=== PATIENT | male | born 1940 | race Caucasian/White ===

== ENCOUNTER 2017-08-21 11:03 | Inpatient (IN) | payer MEDICARE, MEDICAID ==
--- NOTE | 2017-08-21 11:49 | RAD ---
SINGLE VIEW CHEST: Date: 08/21/17 COMPARISON: 07/11/17. HISTORY: Altered mental status. FINDINGS: Single view of the chest shows a normal sized cardiomediastinal silhouette. There is no evidence of c onsolidation, mass, or pleural effusion. The bones are unremarkable. IMPRESSION: No evidence of acute cardiopulmonary disease. POS: [facility]
[2017-08-21] MEDS ORDERED: ISOVUE-370 76%-LOCM 1 ML ONE (12:19)
--- NOTE | 2017-08-21 13:04 | CT ---
NONCONTRAST HEAD CT: Date: 08/21/17 HISTORY: Altered mental status. Weakness. COMPARISON: 04/15/09. TECHNIQUE: Noncontrast head CT is performed from skull base to skull vertex. FINDINGS: No parenchymal hemorrhage or extra-axial hematoma. No midline shift. Basilar cisterns are patent. Bra in volume is age-appropriate. Cortical long-white matter differentiation is preserved. Ventricles and sulci are patent and symmetric. Chronic small vessel ischemic changes of white matter are noted. Calvarium is intact. Adequate aeration of the sinuses and mastoid air cells. Old left nasal bone frac ture noted. IMPRESSION: No acute intracranial process. POS: [facility]
--- NOTE | 2017-08-21 13:12 | CT ---
ABDOMEN CT WITH CONTRAST: PELVIS CT WITH CONTRAST: HISTORY: Altered mental status. Weakness. Abdominal pain. COMPARISON: None. TECHNIQUE: An abdomen and pelvis CT was performed with IV contrast. Enteric contrast was not administered. Cor onal reformatted images were submitted for interpretation. FINDINGS: ABDOMEN: There are interstitial and alveolar infiltrates involving both lower lobes. No pleural eff usion or pneumothorax. Heart size is upper normal. No significant pericardial fluid. The descendin g thoracic aorta and abdominal aorta have an overall normal caliber. No periaortic fat stranding. No gastrohepatic, retrocrural, or periportal lymphadenopathy. The gallbladder is unremarkable. The intrahepatic and extrahepatic portal vein is patent. Symmetric attenuation of the psoas muscles. Hypoattenuation of the liver due to hepatic steatosis. The spleen, pancreas, and bilateral adrenal g lands have appropriate enhancement. Symmetric arterial phase enhancement of the kidneys. Bilaterally, no obstructive uropathy. No mesenteric mass, lymphadenopathy, free air, or free fluid. Limited evaluation of the alimentary canal due to lack of oral contrast. The gastric mucosa, duodenu m, and multiple normal caliber small bowel loops are noted. The ileocecal junction is normal. A nor mal caliber appendix emanates from the cecal apex. Scattered fecal material in a nondistended, nondi lated colon. Diverticula in the sigmoid colon, without evidence of diverticulitis. PELVIS: No mass, lymphadenopathy, free air, or free fluid. There is inadequate distention of the uri nary bladder. Mucosal prominence may be due to inadequate distention. There is some nonspecific per ivesicular fat stranding. The paucity of an infectious or inflammatory process cannot be completely excluded. No lytic or blastic lesions in the osseous structures. IMPRESSION: 1. Abnormal appearance of the urinary bladder. Correlate for infectious or inflammatory process. 2. Lung parenchymal changes, as defined above. POS: [facility]
[2017-08-21 13:58] LABS: ALT (SGPT) 8 U/L (8-55); AST (SGOT) 12 U/L (5-34); Albumin 3.9 g/dL (3.4-4.8); Alkaline Phosphatase 74 U/L (40-150); Anion Gap 17 mmol/L (10-20); BUN (Urea Nitrogen) 23 mg/dL (8.4-25.7); Bilirubin, Total 0.7 mg/dL (0.2-1.2); Calc. Creatinine Clearance 0 mL/min (70-130); Calcium 10.3 mg/dL (7.8-10.44); Carbon Dioxide 20 mmol/L (23-31); Chloride 105 mmol/L (98-107); Estimated GFR-MDRD 44; Globulin 3.2 g/dL (2.4-3.5); Glucose 94 mg/dL (83-110); Lipase 27 U/L (8-78); Potassium 5.5 mmol/L (3.5-5.1); Protein, Total 7.1 g/dL (5.8-8.1); Sodium 136 mmol/L (136-145)
[2017-08-21 14:13] LABS: Bilirubin Negative (Negative); Clarity Slightly Cloudy (Clear); Glucose, Urine (Dipstick) Negative (Negative)
[2017-08-21 14:14] LABS: Blood, Urine Small (Negative); Leukocyte Trace (Negative); Nitrite Negative (Negative); Protein, Urine (Dipstick) Trace mg/dL (Neg-Trace); Urobilinogen 0.2 mg/dL (0.2-1.0)
[2017-08-21 14:23] LABS: Specific Gravity, Urine 1.054 (1.002-1.036)
[2017-08-21 14:25] LABS: Bacteria/HPF None Seen HPF (None Seen)
[2017-08-21 14:26] LABS: Pathc Cast-AUWi Flag 4.74 (0-2.49)
[2017-08-21 14:34] LABS: Hyaline Casts/LPF 0-3 HYALINE CAST LPF (0-3 Hyaline); Other Casts/LPF None Seen LPF (0-3 Hyaline); Squamous Epithelial 0-3 HPF (0-3); Transitional Epithelial 0-3 HPF (0-3)
[2017-08-21 15:10] LABS: #Eosinphils 0.2 thou/uL (0.0-0.7); #Lymphocytes 1.3 thou/uL (1.20-3.40); #Monocytes 0.9 thou/uL (0.11-0.59); #Neutrophils 4.4 thou/uL (1.40-6.50); %Basophils 0.1 % (0.0-1.0); %Eosinophils 2.3 % (0.0-10.0); %Lymphocytes 19.2 % (21.0-51.0); %Monocytes 12.8 % (0.0-10.0); %Neutrophils 65.7 % (42.0-75.0); Hemoglobin 11.6 g/dL (14.0-18.0); Mean Corpuscular HGB CONC 33.1 g/dL (32.0-36.0); Mean Corpuscular Hemoglobin 30.8 pg (27.0-31.0); Mean Platelet Volume 8.7 fL (7.4-10.4); Platelet Count 140 thou/uL (130-400); Red Blood Cell (RBC) Count 3.76 mill/uL (4.70-6.10); White Blood Cell (WBC) Count 6.7 thou/uL (4.8-10.8)
[2017-08-21] MEDS ORDERED: Meropenem 1 GM in Sterile Water 20 ML SLOW IVP SCH (15:15)
[2017-08-21 17:04] LABS: Potassium 5.2 mmol/L (3.5-5.1)
[2017-08-21] MEDS ORDERED: Insulin Regular 300 UNITS/3 ML VIAL SC PRN ×2 (19:06)
[2017-08-21] MEDS ORDERED: Dextrose 5% in Water 1,000 ML IV PRN (19:06)
[2017-08-21] MEDS ORDERED: Ondansetron ODT 4 MG TAB PO PRN (19:06)
[2017-08-21] MEDS ORDERED: Ondansetron HCl/PF 4 MG/2 ML Vial IVP PRN (19:06)
[2017-08-21] MEDS ORDERED: Senokot 8.6 MG TAB PO PRN (19:06)
[2017-08-21] MEDS ORDERED: Calcium Carbonate 500 MG ChewTAB PO PRN (19:06)
[2017-08-21] MEDS ORDERED: Dextrose 50% Abboject 50 ML SYRINGE SLOW IVP PRN (19:06)
[2017-08-21] MEDS ORDERED: Acetaminophen 325 MG TAB PO PRN ×2 (19:06→19:23)
[2017-08-21] MEDS ORDERED: Meropenem 1 GM in Sodium Chloride 0.9% 100 ML IVPB SCH (19:15)
[2017-08-21] MEDS ORDERED: hydrALAZINE 20 MG/ML VIAL SLOW IVP PRN (19:25)
--- NOTE | 2017-08-21 19:39 | HP ---
DATE OF ADMISSION: 08/21/2017 PRIMARY CARE PHYSICIAN: Dr. Huntley SURROGATE DECISION MAKER: Patient's sister. CODE STATUS: DO NOT RESUSCITATE, confirmed with the sister. CHIEF COMPLAINT: Altered mentation. HISTORY OF PRESENT ILLNESS: Patient is a 77-year-old male with dementia, diabetes mellitus type 2 and pyelonephritis, last month presented to the emergency room by EMS from [facility] with altered mentation. The altered mental status has been ongoing for the last 24 hours in and out. He also felt generally weak. Due to dementia, not much information is available from the patient. Patient had some lower abdominal discomfort. The patient denied any chest pain, palpitations, any skin rash, nausea, vomiting , diarrhea or constipation. In the emergency room, his initial vital signs showed temperature 97.7 with respiration 20, pulse rate of 55 with a blood pressure of 91/56 with O2 saturation 97% on room air. His blood pressure by EMS was 77/51. His workup in the emergency room was consistent with abnormal appearance of the urinary bladder. CT brain was negative. His chest x-ray was negative for infiltrate. Due to recent resistant E. coli, he received 1 dose of meropenem with 2 liters of IV fluid in the emergency room. PAST MEDICAL HISTORY: 1. Recent pyelonephritis with E. coli resistant to Levaquin. 2. Benign prostatic hypertrophy. 3. Dementia. 4. Diabetes mellitus type 2. 5. Coronary artery disease. 6. Hyperlipidemia. 7. Anxiety, depression, bipolar disorder. 8. Hypothyroidism. 9. Hyperlipidemia. PAST SURGICAL HISTORY: Skin cancer removal from the face. CURRENT HOME MEDICATIONS: Accurate list of medications to be obtained from the jail. Family does not know all of his medications. SOCIAL HISTORY: Patient resides at [facility]. He is more or less wheelchair dependent. He requires assistance for feeding. ALLERGIES: The patient is allergic to PENICILLIN. FAMILY HISTORY: Cannot be obtained from the patient due to current cognitive status. REVIEW OF SYSTEMS: The following complete review of systems was negative, unless otherwise mentioned in the HPI or below: Constitutional: Weight loss or gain, ability to conduct usual activities. Skin : Rash, itching. Eyes: Double vision, pain. ENT/Mouth: Nose bleeding, neck stiffness, pain, tenderness. Cardiovascular: Palpitations, dyspnea on exertion , orthopnea. Respiratory: Shortness of breath, wheezing, cough, hemoptysis, fever or night sweats. Gastrointestinal: Poor appetite, abdominal pain, heartburn, nausea, vomiting, constipation, or diarrhea. Genitourinary: Urgency , frequency, dysuria, nocturia. Musculoskeletal: Pain, swelling. Neurologic/ Psychiatric: Anxiety, depression. Allergy/Immunologic: Skin rash, bleeding tendency. PHYSICAL EXAMINATION: VITAL SIGNS: As discussed above. GENERAL: A 77-year-old male in no apparent distress. Denies any pain at this time. HEENT: Atraumatic, normocephalic, sclerae anicteric. Moist mucous membranes. No oral lesion. NECK: Supple, no JVD, no neck stiffness. LUNGS: Essentially clear to auscultation bilaterally. No wheezing, rales or rhonchi. HEART: S1, S2 present. Regular rate and rhythm. Bradycardiac no heaves or pulsation. ABDOMEN: Soft, mild tenderness over the suprapubic region. No rebound, guarding, no costovertebral angle tenderness. EXTREMITIES: No edema or calf tenderness. NEUROLOGIC: The patient is spontaneously moving all 4 extremities and follows command to some extent. PSYCHIATRIC: The patient is alert and awake. Detailed psychiatric examination cannot be done due to dementia. SKIN: Warm and dry. LYMPH NODES: No palpable lymph nodes in the neck. PERIPHERAL VASCULAR: Radial pulses palpable bilaterally. MUSCULOSKELETAL: No joint swelling or tenderness. LABORATORY FINDINGS: Potassium was 5.5 with creatinine 1.54, bicarbonate was 20. CBC showed WBC 6.7 with hemoglobin 11.6. Chest x-ray by my review as discussed above. EKG by my review showed sinus bradycardia with nonspecific ST-T wave changes. CT scan of the brain was negative. CT scan of the abdomen and pelvis by my review with contrast as discussed above. IMPRESSION: 1. Toxic metabolic encephalopathy secondary to urinary tract infection/? Pneumonia ?Pneumococcal vs Aspiration 2. Acute kidney injury on chronic kidney disease stage II. 3. Hyperkalemia, probably secondary to acute kidney injury. 4. Chronic anemia. 5. PENICILLIN allergy. 6. Diabetes mellitus type 2. 7. Dementia. 8. Swallow dysfunction. 9. Benign prostatic hypertrophy. 10. Hypothyroidism. 11. Hyperlipidemia. 12. Bipolar disorder. 13. Depression. 14. Coronary artery disease. PLAN: 1. The patient will be monitored on the telemetry unit due to hyperkalemia. We will continue gentle hydration. We will confirm home medications and start accordingly. Continue meropenem. Await blood and urine cultures. Fall precautions. Consult physical therapy and occupational therapy. 2. The patient will require 2-3 days for stabilization. Plan of care was discussed with the patient. We will discuss plan of care with the family when they arrive. At this time, there is no family at the bedside. [facility]
[2017-08-21] MEDS ORDERED: Tamsulosin HCl 0.4 MG CAP PO SCH (21:45)
[2017-08-21] MEDS: Sodium Chloride 0.9% 1,000 ML IV SCH (23:37)
[2017-08-21] MEDS: Divalproex Sodium 250 MG (DR) TAB PO SCH (23:38)
[2017-08-21] MEDS: Docusate 100 MG CAP PO SCH (23:38)
[2017-08-21] MEDS: Atorvastatin Calcium 20 MG TAB PO SCH (23:38)
[2017-08-21] MEDS: Famotidine 20 MG TAB PO SCH (23:39)
[2017-08-21] MEDS: Meropenem 1 GM in Sterile Water 20 ML SLOW IVP SCH (23:41)
[2017-08-21] MEDS ORDERED: Albuterol Sulfate 1.25 MG/3 ML NEB NEB PRN (23:59)
[2017-08-22 05:48] LABS: Anion Gap 14 mmol/L (10-20); BUN (Urea Nitrogen) 14 mg/dL (8.4-25.7); Calc. Creatinine Clearance 66 mL/min (70-130); Calcium 9.5 mg/dL (7.8-10.44); Carbon Dioxide 20 mmol/L (23-31); Chloride 107 mmol/L (98-107); Estimated GFR-MDRD 82; Glucose 82 mg/dL (83-110); Potassium 4.6 mmol/L (3.5-5.1); Sodium 136 mmol/L (136-145)
[2017-08-22 06:01] LABS: Hemoglobin 10.5 g/dL (14.0-18.0); Mean Corpuscular HGB CONC 33.8 g/dL (32.0-36.0); Mean Corpuscular Hemoglobin 31.6 pg (27.0-31.0); Mean Corpuscular Volume 93.5 fl (80.0-94.0); Mean Platelet Volume 9.1 fL (7.4-10.4); Platelet Count 162 thou/uL (130-400); RBC Distribution Width 12.9 % (11.5-14.5); Red Blood Cell (RBC) Count 3.32 mill/uL (4.70-6.10); White Blood Cell (WBC) Count 5.5 thou/uL (4.8-10.8)
[2017-08-22 06:02] LABS: Band 11 % (5-11); Eosinophils 2 % (0-10); Lymphocytes 20 % (21-51); MDiff Complete? YES; Monocytes 19 % (0-10); Neutrophil 48 % (42-75); PLT Morphology Comment Appears Adequate
[2017-08-22] MEDS: Sodium Chloride 0.9% 1,000 ML IV SCH ×3 (06:23→22:03)
[2017-08-22] MEDS: Levothyroxine Sodium 50 MCG TAB PO SCH (06:23)
[2017-08-22] MEDS: Enoxaparin Sodium 30 MG/0.3 ML SYRINGE SC SCH (09:04)
[2017-08-22] MEDS: Ubidecarenone 50 MG CAP PO SCH (09:04)
[2017-08-22] MEDS: Aspirin 325 mg Enteric Coated Tablet PO SCH (09:04)
[2017-08-22] MEDS: Docusate 100 MG CAP PO SCH ×2 (09:04→21:49)
[2017-08-22] MEDS: Donepezil HCl 10 MG TAB PO SCH (09:04)
[2017-08-22] MEDS: Finasteride 5 MG TAB PO SCH (09:04)
[2017-08-22] MEDS: Divalproex Sodium 250 MG (DR) TAB PO SCH ×2 (09:05→21:48)
[2017-08-22] MEDS: Lactinex Tablet PO SCH (09:05)
[2017-08-22] MEDS: Meropenem 1 GM in Sterile Water 20 ML SLOW IVP SCH ×2 (09:09→21:54)
--- NOTE | 2017-08-22 17:54 | PDOC.PN ---
- Subjective Encounter Start Date: 08/22/17 Encounter Start Time: 12:30 Patient seen and examined. No new complaints. No overnight events. Mentation improving - Objective Resuscitation Status: Resuscitation Status DNR:Do Not Resuscitate MAR Reviewed: Yes Vital Signs & Weight: Vital Signs (12 hours) Temp Pulse Pulse Pulse Resp BP BP 08/22/17 16:38 98.5 F 69 18 08/22/17 11:55 97.9 F 59 L 18 08/22/17 10:53 63 69 127/57 L 124/57 L 08/22/17 08:20 97.5 F L 53 L 20 BP Pulse Ox Pulse Ox 08/22/17 16:38 125/64 92 L 08/22/17 11:55 126/62 96 08/22/17 10:53 96 08/22/17 08:20 145/66 H 100 Weight Weight 147 lb 12.8 oz I&O: 08/21/17 08/22/17 08/23/17 06:59 06:59 06:59 Intake Total 880 237 Balance 880 237 Result Diagrams: 08/22/17 04:37 08/22/17 04:37 Additional Labs: Accuchecks 08/22/17 08/22/17 08/21/17 11:38 07:09 20:44 POC Glucose 135 H 89 106 EKG Reviewed by me: Yes (Tele SR) Phys Exam - Physical Examination Constitutional: NAD Respiratory: no wheezing, no rhonchi Cardiovascular: RRR, no rub Gastrointestinal: soft, non-tender, positive bowel sounds Musculoskeletal: no edema Neurological: moves all 4 limbs Dx/Plan - Plan DVT proph w/lovenox, DVT proph w/SCDs IMPRESSION: 1. Toxic metabolic encephalopathy secondary to urinary tract infection/ Pneumonia ?Pneumococcal. r/o Aspiration 2. Acute kidney injury on chronic kidney disease stage II. 3. Hyperkalemia, probably secondary to acute kidney injury. 4. Chronic anemia. 5. PENICILLIN allergy. 6. Diabetes mellitus type 2. 7. Dementia. 8. Swallow dysfunction. 9. Benign prostatic hypertrophy. 10. Hypothyroidism. 11. Hyperlipidemia. 12. Bipolar disorder. 13. Depression. 14. Coronary artery disease. PLAN: * Cont Atbx * Change IVF to 75 ml/hr * Cont to monitor * Cont current meds as below * Hold ACEI due to hyperkalemia on admission * AM labs * Await cultures Microbiology 08/21/17 16:35 Venous blood - Left Hand Blood Culture - Preliminary Specimen has been received and culture in progress. No Growth to date. 08/21/17 15:13 Venous blood - Right Arm Blood Culture - Preliminary Specimen has been received and culture in progress. No Growth to date. 08/21/17 14:00 Urine Straight Catheter Urine Culture - Preliminary NO GROWTH AT 24 HOURS Review of Systems - Review of Systems Respiratory: negative: Cough, Dry, Shortness of Breath, Hemoptysis, SOB with Excertion, Pleuritic Pain, Sputum, Wheezing Cardiovascular: other. negative: chest pain, palpitations, orthopnea, paroxysmal nocturnal dyspnea, edema, light headedness - Medications/Allergies Allergies/Adverse Reactions: Allergies Allergy/AdvReac Type Severity Reaction Status Date / Time Penicillins Allergy Verified 06/30/15 18:39 Medications: Current Medications Acetaminophen (Tylenol) 650 mg PO Q4H PRN PRN Reason: Headache/Fever or Pain Acetaminophen (Tylenol) 650 mg PO Q6HR PRN PRN Reason: Pain Acidophilus (Floranex) 1 tab PO DAILY [facility] Last Admin: 08/22/17 09:05 Dose: 1 tab Albuterol Sulfate (Albuterol Sulfate) 1.25 mg NEB Q6H PRN PRN Reason: SOB &/or Wheezing Aspirin (Ecotrin) 325 mg PO DAILY [facility] Last Admin: 08/22/17 09:04 Dose: 325 mg Atorvastatin Calcium (Lipitor) 20 mg PO HS [facility] Last Admin: 08/21/17 23:38 Dose: 20 mg Calcium Carbonate (Tums) 1,000 mg PO Q4H PRN PRN Reason: Heartburn or Indigestion Coenzyme Q10 (Coenzyme Q10) 50 mg PO DAILY [facility] Last Admin: 08/22/17 09:04 Dose: 50 mg Dextrose/Water (Dextrose 50%) 25 gm SLOW IVP PRN PRN PRN Reason: Hypoglycemia Divalproex Sodium (Depakote) 250 mg PO BID [facility] Last Admin: 08/22/17 09:05 Dose: 250 mg Docusate Sodium (Colace) 100 mg PO BID [facility] Last Admin: 08/22/17 09:04 Dose: 100 mg Donepezil HCl (Aricept) 10 mg PO DAILY [facility] Last Admin: 08/22/17 09:04 Dose: 10 mg Enoxaparin Sodium (Lovenox) 30 mg SC 0900 [facility] Last Admin: 08/22/17 09:04 Dose: 30 mg Famotidine (Pepcid) 20 mg PO 2100 [facility] Last Admin: 08/21/17 23:39 Dose: 20 mg Finasteride (Proscar) 5 mg PO DAILY [facility] Last Admin: 08/22/17 09:04 Dose: 5 mg Glucagon (Glucagon) 1 mg IM PRN PRN PRN Reason: Hypoglycemia Hydralazine HCl (Apresoline) 5 mg SLOW IVP Q4H PRN PRN Reason: SBP Greater Than 180 Dextrose/Water (D5w) 1,000 mls @ 0 mls/hr IV .Q0M PRN; As Directed PRN Reason: Hypoglycemia Meropenem 1 gm/ Sterile Water 20 mls @ 240 mls/hr SLOW IVP 1000,2200 [facility] Last Admin: 08/22/17 09:09 Dose: 20 mls Sodium Chloride (Normal Saline 0.9%) 1,000 mls @ 75 mls/hr IV .[id number] [facility] Insulin Human Regular (Humulin R) 0 units SC .MILD SLIDING SCALE PRN PRN Reason: Mild Correctional Scale Insulin Human Regular (Humulin R) 0 units SC .BEDTIME SLIDING SC PRN PRN Reason: Bedtime Correctional Scale Levothyroxine Sodium (Synthroid) 50 mcg PO 0600 [facility] Last Admin: 08/22/17 06:23 Dose: 50 mcg Memantine (Namenda) 10 mg PO BID [facility] Last Admin: 08/22/17 09:04 Dose: 10 mg Miscellaneous Medication (Pharmacy To Dose) 1 each IVPB ONE PRN PRN Reason: Pharmacy to dose Stop: 09/20/17 19:13 Ondansetron HCl (Zofran Odt) 4 mg PO Q6H PRN PRN Reason: Nausea/Vomiting Ondansetron HCl (Zofran) 4 mg IVP Q6H PRN PRN Reason: Nausea/Vomiting Paroxetine HCl (Paxil) 10 mg PO HS [place] Quetiapine Fumarate (Seroquel) 50 mg PO HS [facility] Senna (Senokot) 2 tab PO HSPRN PRN PRN Reason: Constipation Tamsulosin HCl (Flomax) 0.8 mg PO HS [facility]
[2017-08-22] MEDS ORDERED: PARoxetine 20 MG TAB PO SCH (21:00)
[2017-08-22] MEDS ORDERED: Tamsulosin HCl 0.4 MG CAP PO SCH (21:00)
[2017-08-22] MEDS: Atorvastatin Calcium 20 MG TAB PO SCH (21:49)
[2017-08-22] MEDS: Famotidine 20 MG TAB PO SCH (21:50)
[2017-08-23] MEDS: Sodium Chloride 0.9% 1,000 ML IV SCH (05:48)
[2017-08-23] MEDS: Levothyroxine Sodium 50 MCG TAB PO SCH (05:51)
[2017-08-23] MEDS: Enoxaparin Sodium 30 MG/0.3 ML SYRINGE SC SCH (09:32)
[2017-08-23] MEDS: Aspirin 325 mg Enteric Coated Tablet PO SCH (09:33)
[2017-08-23] MEDS: Lactinex Tablet PO SCH (09:33)
[2017-08-23] MEDS: Donepezil HCl 10 MG TAB PO SCH (09:33)
[2017-08-23] MEDS: Ubidecarenone 50 MG CAP PO SCH (09:33)
[2017-08-23] MEDS: Docusate 100 MG CAP PO SCH (09:33)
[2017-08-23] MEDS: Finasteride 5 MG TAB PO SCH (09:33)
[2017-08-23] MEDS: Divalproex Sodium 250 MG (DR) TAB PO SCH (09:36)
[2017-08-23] MEDS: Meropenem 1 GM in Sterile Water 20 ML SLOW IVP SCH (10:00)
--- NOTE | 2017-08-23 12:22 | DIS ---
DATE OF DISCHARGE: 08/23/2017 DISCHARGE DISPOSITION: [facility]. INPATIENT CONSULTANTS: None. The patient was seen and examined on the day of discharge. Denies any new complaints, no chest pain, shortness of breath, palpitations, or fever. CODE STATUS: DO NOT RESUSCITATE. DISCHARGE MEDICATIONS: Essentially same as admission medications. Lisinopril has been discontinued. Levaquin for 5 days has been added. The patient will resume metformin tomorrow. 1. Tylenol as needed. 2. Aspirin 325 mg daily. 3. Lipitor 20 mg at bedtime. 4. Divalproex 250 mg b.i.d. 5. Donepezil 10 mg daily. 6. Finasteride 5 mg daily. 7. [place] as needed. 8. Floranex 1 tablet daily. 9. Levaquin 500 mg daily. 10. Levothyroxine 50 mcg daily. 11. Imodium as needed. 12. Namenda 10 mg b.i.d. 13. Metformin 500 mg b.i.d. 14. Metoprolol tartrate 12.5 mg daily. 15. Paxil 10 mg at bedtime. 16. Seroquel 50 mg at bedtime. 17. Flomax 0.8 mg at bedtime. 18. Coenzyme Q10 is 200 mg daily. SIGNIFICANT LABORATORY DATA: 1. Urine specific gravity on admission was 1.054 with 11-20 WBCs, no bacteria. 2. Potassium on admission 5.5, at discharge is 4.6. 3. Creatinine on admission 1.54, at discharge 0.9. 4. CBC on admission showed WBC 6.7 with hemoglobin 11.6. 5. Blood culture and urine cultures are negative so far. Primary care physician is advised to follo w up on the final cultures. 6. CT scan of the brain on admission was negative for acute findings. It showed chronic small vesse l ischemic changes. 7. Chest x-ray was negative for acute findings. 8 CT scan of the abdomen and pelvis with contrast in the emergency room showed abnormal appearance o f the urinary bladder. It also showed interstitial and alveolar infiltrates involving both lower lob es without any pleural effusion. BRIEF HOSPITAL COURSE: Patient is a 77-year-old male with diabetes mellitus type 2 and recent pyelon ephritis, presented to the hospital with altered mentation. Please refer to the history and physical dated 08/21/2017 for further details. The patient was admitted to the hospital with a diagnosis of toxic metabolic encephalopathy. The pat ient was found to have pneumonia with acute kidney injury and hyperkalemia. There was also a concern for UTI due to 11-20 WBCs in the urine. His renal function improved with IV hydration. Blood and u rine cultures have been negative so far. He was placed on meropenem due to resistant Escherichia col i pyelonephritis recently. This will be changed to Levaquin at discharge. Patient was evaluated by physical therapy, occupational therapy, as well as speech therapy. He will continue on mechanical so ft with thin liquids with aspiration precautions. I think patient probably had aspiration pneumonia. His hyperkalemia has resolved. Lisinopril will be discontinued. He will continue metoprolol. [facility] physician advised to adjust his blood pressure medication based on his blood pressure readi ngs at the nursing facility. His mentation is back to normal. The plan of care was discussed with t talha patient and the [id number] over the phone. She stated understanding. FINAL DIAGNOSES: 1. Toxic metabolic encephalopathy probably secondary to dehydration versus pneumonia, suspected pneu mococcal versus aspiration. 2. Acute kidney injury on chronic kidney disease stage 2, resolved. 3. Hyperkalemia, probably secondary to acute kidney injury in the setting of MEÑO inhibitor use. Lis inopril has been discontinued for this reason. 4. Chronic anemia. 5. Diabetes mellitus type 2. 6. Dementia. 7. Penicillin allergy. 8. Swallow dysfunction, currently on mechanical soft with thin liquids. 9. Benign prostatic hypertrophy. His postvoid residual was 41 mL today. 10. Hypothyroidism. 11. Hyperlipidemia. 12. Bipolar disorder. 13. Depression. 14. Coronary artery disease. Total time coordinating the discharge of this patient was 38 minutes.
[2017-08-23 15:32] VITALS: BP 148/68; TEMP 97.6
--- NOTE | 2017-08-26 14:24 | EKG ---
Test Reason : Blood Pressure : / mmHG Vent. Rate : 054 BPM Atrial Rate : 054 BPM P-R Int : 166 ms QRS Dur : 086 ms QT Int : 466 ms P-R-T Axes : 058 026 076 degrees QTc Int : 441 ms Sinus bradycardia Nonspecific T wave abnormality Abnormal ECG Confirmed by LALO ABDUL, ARMANI ([id number]), senior editor ELIZABETH MORGAN ([id number]) on 08/26/2017 2:24:06 PM Referred By: Confirmed By:ARMANI MAY MD
== END 2017-08-23 15:33 | DRG 177 ==
LOC: ERS 11:03 → 2NO 15:08
PROVIDERS: ADMIT Internal Medicine; ATTEND Internal Medicine
DX: J69.0 Pneumonitis due to inhalation of food and vomit (principal); G92 Toxic encephalopathy; N17.9 Acute kidney failure, unspecified; N39.0 Urinary tract infection, site not specified; E87.5 Hyperkalemia; E86.0 Dehydration; D64.9 Anemia, unspecified; F03.90 Unspecified dementia, unspecified severity, without behavioral disturbance, psychotic disturbance, mood disturbance, and anxiety; Z88.0 Allergy status to penicillin; N40.0 Benign prostatic hyperplasia without lower urinary tract symptoms; E03.9 Hypothyroidism, unspecified; E78.5 Hyperlipidemia, unspecified; F31.9 Bipolar disorder, unspecified; I25.10 Atherosclerotic heart disease of native coronary artery without angina pectoris; F32.9 Major depressive disorder, single episode, unspecified; Z66 Do not resuscitate; E11.22 Type 2 diabetes mellitus with diabetic chronic kidney disease; N18.2 Chronic kidney disease, stage 2 (mild)
CPT/HCPCS: 36415; 36416; 51701; 70450; 71045; 74177; 80048; 80053; 81003; 81015; 83690; 85025; 87040; 87086; 93005; 96361; 96374; A4216; G8978-GP-CL; G8979-GP-CJ; G8987-GO-CM; G8988-GO-CM; G8989-GO-CM; G8996-GN-CL; G8997-GN-CJ; J1650; J2185

== ENCOUNTER 2020-01-26 07:18 | Inpatient (IN) | payer MEDICARE, OTHER ==
[2020-01-26 08:14] LABS: ALT (SGPT) 12 U/L (8-55); AST (SGOT) 19 U/L (5-34); Albumin 3.3 g/dL (3.4-4.8); Alkaline Phosphatase 81 U/L (40-110); Anion Gap 14 mmol/L (10-20); BUN (Urea Nitrogen) 11 mg/dL (8.4-25.7); Bilirubin, Total 0.7 mg/dL (0.2-1.2); Calc. Creatinine Clearance 0 mL/min (70-130); Calcium 9.2 mg/dL (7.8-10.44); Carbon Dioxide 26 mmol/L (23-31); Chloride 100 mmol/L (98-107); Estimated GFR-MDRD 74; Globulin 3.3 g/dL (2.4-3.5); Glucose 194 mg/dL (83-110); Potassium 4.1 mmol/L (3.5-5.1); Protein, Total 6.6 g/dL (5.8-8.1); Sodium 136 mmol/L (136-145)
[2020-01-26 08:30] LABS: Band 33 % (5-11); Crenated RBC SLIGHT = 1-5 cells (100X) (None Seen); Hemoglobin 12.4 g/dL (14.0-18.0); Lymphocytes 7 % (21-51); MDiff Complete? YES; Mean Corpuscular HGB CONC 34.4 g/dL (32.0-36.0); Mean Corpuscular Hemoglobin 33.1 pg (27.0-31.0); Mean Corpuscular Volume 96.3 fL (78.0-98.0); Mean Platelet Volume 8.3 fL (7.4-10.4); Metamyelocyte 1 % (0-0); Monocytes 2 % (0-10); Neutrophil 57 % (42-75); Platelet Count 142 thou/uL (130-400); RBC Distribution Width 13.9 % (11.5-14.5); Red Blood Cell (RBC) Count 3.73 mill/uL (4.70-6.10); White Blood Cell (WBC) Count 13.5 thou/uL (4.8-10.8)
[2020-01-26] MEDS ORDERED: Vancomycin 1 GM/200 ML BAG ONE (08:32)
[2020-01-26] MEDS ORDERED: cefTRIAXone\\ROCEPHIN 2 GM VIAL ONE (08:32)
[2020-01-26 08:44] LABS: Bacteria/HPF 4+ HPF (None Seen); Bilirubin Negative (Negative); Blood, Urine 2+ (Negative); Clarity Extra Turbid (Clear); Glucose, Urine (Dipstick) Normal (Negative); Ketone, Urine 20 mg/dL (Negative); Leukocyte 500 Leu/uL (Negative); Nitrite Negative (Negative); Protein, Urine (Dipstick) 50 mg/dL (Neg-Trace); RBC/HPF 21-50 HPF (0-3); Specific Gravity, Urine 1.019 (1.002-1.036); Squamous Epithelial None Seen HPF (0-3); Urobilinogen 3 mg/dL (Less than 2); WBC/HPF Greater than 50 HPF (0-3)
[2020-01-26 11:04] LABS: Lactic Acid 6.1 mmol/L (0.5-2.2)
--- NOTE | 2020-01-26 11:53 | RAD ---
PORTABLE CHEST: DATE: 01/26/2020. PROVIDED CLINICAL HISTORY: Lethargy. FINDINGS: Comparison is made with the study dated 08/21/2017. Cardiac and mediastinal silhouette is within norm al limits. Vascular calcification is noted involving the aortic arch. No focal consolidation, pleur al fluid, or pneumothorax apparent. IMPRESSION: No evidence for an acute cardiopulmonary process. POS: [facility]
[2020-01-26 12:09] VITALS: BMI 20.9
[2020-01-26] MEDS ORDERED: Dextrose 5% in Water 1,000 ML IV PRN (12:10)
[2020-01-26] MEDS ORDERED: Acetaminophen 325 MG TAB PO PRN ×2 (12:10→12:35)
[2020-01-26] MEDS ORDERED: Dextrose 50% Abboject 50 ML SYRINGE SLOW IVP PRN (12:10)
[2020-01-26] MEDS ORDERED: Ondansetron ODT 4 MG TAB SL PRN (12:35)
[2020-01-26] MEDS ORDERED: Ondansetron PF 4 MG/2 ML Vial IVP PRN (12:35)
[2020-01-26] MEDS ORDERED: Sodium Chloride 0.9% 1,000 ML IV SCH (13:00)
[2020-01-26] MEDS ORDERED: cefTRIAXone\\ROCEPHIN 2 GM in Sodium Chloride 0.9% 100 ML IVPB SCH (13:00)
[2020-01-26] MEDS: HumaLOG 300 UNITS/3 ML VIAL SC PRN (14:42)
[2020-01-26] MEDS: Sodium Chloride 0.9% 1,000 ML IV SCH (14:44)
[2020-01-26] MEDS ORDERED: Divalproex Sodium 250 MG (DR) TAB PO SCH (15:00)
--- NOTE | 2020-01-26 16:03 | PDOC.EVN ---
Event Note - Event Note Event Note: Patient was reviewed with Aurelia Rivero. I examined the patient. He was asleep, but easily awakened. He denies any problems and says he feels good. He is hearing impaired. Heart is regular, lungs are clear, abd benign. His extremities are warm with good cap refill. No livedo. Labs show lactic acidosis that apparently got worse after fluids. Stat repeat took a while, but is some better. He does not appear toxic. Will cover with abx and follow up cultures. Hold the metformin and cover with SSI as needed.
[2020-01-26 16:49] LABS: Lactic Acid 3.5 mmol/L (0.5-2.2)
--- NOTE | 2020-01-26 18:09 | HP ---
PRIMARY CARE PHYSICIAN: Dr. Sajan Huntley. CHIEF COMPLAINT: Fever. HISTORY OF PRESENT ILLNESS: The patient is a 79-year-old male with a past medical history significant for diabetes, hypertension, dementia. He presents to the ER today from a halfway facility where he had a fever of 101 this morning and they state he was more lethargic than usual. At the halfway, they noted that he had a dark urine and they were also concerned that he may have possibly been exposed to COVID. The patient is a very poor historian. During this interview, he states that he feels fine and better than usual. He denies any shortness of breath, chest pain, abdominal discomfort, swelling, recent trauma, recent ill contacts. Once again, however, though he is a poor historian. Today in the ER they completed lab work , UA, COVID screening and a chest x-ray. PAST MEDICAL HISTORY: BPH with urinary retention, coronary artery disease, diabetes, hypothyroid, hyperlipidemia, hypertension, dementia, and bipolar. PAST SURGICAL HISTORY: Skin cancer removal. ALLERGIES: PENICILLIN. MEDICATIONS: Reconciled from the list from the halfway. 1. [place]-3 fish oil two caps p.o. daily. 2. Niaspan 2000 mg p.o. at bedtime. 3. Namenda 10 mg p.o. b.i.d. 4. Flonase 1 spray daily. 5. Vitamin C chewable 500 mg p.o. daily. 6. Tamsulosin 0.4 mg p.o. daily. 7. Donepezil 10 mg p.o. daily. 8. Atorvastatin 20 mg p.o. at bedtime. 9. Levothyroxine 50 mcg p.o. daily. 10. Seroquel 50 mg p.o. b.i.d. 11. Metoprolol tartrate 25 mg p.o. daily. 12. Coenzyme Q10 200 mg daily. 13. Aspirin enteric-coated 325 mg p.o. daily. 14. Tylenol 650 mg p.o. q.6 hours p.r.n. 15. Paxil 30 mg p.o. at bedtime. 16. Finasteride 5 mg p.o. daily. 17. Divalproex sodium 250 mg p.o. t.i.d. 18. Metformin 1000 mg p.o. daily. SOCIAL HISTORY: The patient lives in a long-term halfway. He does not drink. No tobacco use and no illicit drug use. FAMILY HISTORY: The patient unable to recall at this time. REVIEW OF SYSTEMS: All other review of systems negative unless noted in the HPI. PHYSICAL EXAMINATION: VITAL SIGNS: Temperature 99.2 Fahrenheit orally, pulse 92, respiratory rate 24 , O2 saturation 98% on room air. Blood pressure 135/76. The patient appears ill but not toxic. He appears comfortable at this time. HEENT: Head; atraumatic, normocephalic. PERRLA. Extraocular muscles are intact. Mucous membranes are dry. Trachea midline. No lymphadenopathy. RESPIRATORY: Clear to auscultation bilaterally. Normal chest rise. No wheezes. No rhonchi. No rales. CARDIOVASCULAR: Regular rate and rhythm. Pedal pulses normal. No murmurs, no rubs, no gallops. ABDOMEN: Nontender. Bowel sounds normal. No distention. No masses. EXTREMITIES: No edema. No cyanosis. No clubbing. NEURO: The patient is oriented to person, which appears to be his baseline. No focal motor deficits. PSYCH: Normal affect and normal behavior for patient. LABORATORY DATA: COVID screen is negative. White blood cells 13.5, hemoglobin 12.4, hematocrit 35.9, platelets 142. Sodium 136, potassium 4.1, creatinine 0.98, GFR 74, glucose 194, lactic acid 2.4, and then 6.1 during later draw. Troponin negative, urine turbid clarity, 20 ketones, 2+ blood, white blood cells greater than 50, urine bacteria 4+. EKG SR 75 bets per minute. Chest xray- no evidence for acute cardiopulmonary process. IMPRESSION: 1. Fever and sepsis caused by urinary tract infection. We will continue to monitor the patient's temperatures throughout the evening along with lab work in the morning. He will be started on broad-spectrum antibiotics. Urine has been sent for cultures. The patient also to be started on IV fluids as his kidney levels are more elevated than his usual. We will restart patient on his home medications and await his blood and urine culture results. 2. Hypertension. Blood pressure stable at this time. We will continue to monitor. Restart his home medications along with treating with p.r.n. antihypertensive as necessary. 3. Diabetes type 2. Mild sliding scale insulin has been ordered along with bedtime sliding scale insulin. Accu-Cheks will be monitored before meals and at bedtime , however, going to hold his metformin at this time, but he will have a sliding scale insulin as needed. 4. Dementia. Restart the patient on his home medications and monitor for any ing tonight. Keep the patient as comfortable as possible. GI and DVT prophylaxis have been ordered. SCDs are in place for VTE and Protonix has been ordered for GI prophylaxis and halfway records. The patient is listed as a DNR. We will confirm with his [id number], who is his medical power of brewery pumper. She is his [id number], Rosalba Hudson, who is listed in his halfway records as a surrogate decision maker and medical power of brewery pumper. 5. The patient has been discussed with Dr. Juarez. Job ID: [id number] [facility]Michael
[2020-01-26] MEDS: Vancomycin 1 GM in Premix Bag 1 BAG IVPB SCH (21:37)
[2020-01-26] MEDS: Atorvastatin Calcium 20 MG TAB PO SCH (21:39)
[2020-01-26] MEDS: PARoxetine 20 MG TAB PO SCH (21:40)
[2020-01-26] MEDS: Valproate Sodium 250 MG in Sodium Chloride 0.9% 100 ML IVPB SCH (22:11)
[2020-01-27] MEDS: Sodium Chloride 0.9% 1,000 ML IV SCH ×2 (04:00→20:37)
[2020-01-27] MEDS: Levothyroxine Sodium 50 MCG TAB PO SCH (05:09)
[2020-01-27 05:43] LABS: #Eosinphils 0.2 thou/uL (0.0-0.7); #Lymphocytes 1.2 thou/uL (1.20-3.40); #Monocytes 0.6 thou/uL (0.11-0.59); #Neutrophils 4.7 thou/uL (1.40-6.50); %Basophils 0.3 % (0.0-1.0); %Eosinophils 2.5 % (0.0-10.0); %Lymphocytes 17.8 % (21.0-51.0); %Monocytes 8.6 % (0.0-10.0); %Neutrophils 70.8 % (42.0-75.0); Hemoglobin 10.3 g/dL (14.0-18.0); Mean Corpuscular HGB CONC 31.7 g/dL (32.0-36.0); Mean Corpuscular Volume 97.6 fL (78.0-98.0); Mean Platelet Volume 7.9 fL (7.4-10.4); Platelet Count 145 thou/uL (130-400); RBC Distribution Width 13.8 % (11.5-14.5); Red Blood Cell (RBC) Count 3.31 mill/uL (4.70-6.10); White Blood Cell (WBC) Count 6.6 thou/uL (4.8-10.8)
[2020-01-27 06:04] LABS: Anion Gap 17 mmol/L (10-20); BUN (Urea Nitrogen) 6 mg/dL (8.4-25.7); Calc. Creatinine Clearance 80 mL/min (70-130); Calcium 8.4 mg/dL (7.8-10.44); Carbon Dioxide 23 mmol/L (23-31); Chloride 103 mmol/L (98-107); Estimated GFR-MDRD Greater than 90; Glucose 120 mg/dL (83-110); Potassium 3.8 mmol/L (3.5-5.1); Sodium 139 mmol/L (136-145)
[2020-01-27] MEDS: cefTRIAXone\\ROCEPHIN 2 GM in Sodium Chloride 0.9% 100 ML IVPB SCH (08:03)
[2020-01-27] MEDS: Donepezil HCl 10 MG TAB PO SCH (08:09)
[2020-01-27] MEDS: Tamsulosin HCl 0.4 MG CAP PO SCH (08:09)
[2020-01-27] MEDS: Metoprolol Tartrate 25 MG TAB PO SCH (08:09)
[2020-01-27] MEDS: Aspirin 325 mg Enteric Coated Tablet PO SCH (08:09)
[2020-01-27] MEDS: Finasteride 5 MG TAB PO SCH (08:10)
[2020-01-27] MEDS ORDERED: metFORMIN 500 MG TAB PO SCH (09:00)
[2020-01-27] MEDS: Valproate Sodium 250 MG in Sodium Chloride 0.9% 100 ML IVPB SCH ×3 (09:30→20:40)
[2020-01-27] MEDS: Vancomycin 1 GM in Premix Bag 1 BAG IVPB SCH ×2 (09:31→20:28)
[2020-01-27] MEDS: HumaLOG 300 UNITS/3 ML VIAL SC PRN (12:18)
[2020-01-27] MEDS ORDERED: Prevnar 13-Val Conj/PF 0.5 ML SYRINGE IM ONE (12:45)
--- NOTE | 2020-01-27 15:10 | PDOC.HOSPP ---
- Subjective Encounter Date: 01/27/20 Subjective: Patient reports she is doing well. He tends to go back to sleep promptly after saying so. - Objective Vital Signs & Weight: Vital Signs (12 hours) Temp Pulse Resp BP BP Pulse Ox 01/27/20 12:00 98.0 F 63 18 114/70 98 01/27/20 08:00 98.2 F 67 20 132/65 97 01/27/20 04:00 98.2 F 86 20 146/82 H 94 L Weight Admit Weight 154 lb 5.177 oz Weight 154 lb 5.177 oz I&O: 01/26/20 01/27/20 01/28/20 06:59 06:59 06:59 Output Total 2 Balance -2 Result Diagrams: 01/27/20 05:23 01/27/20 05:23 Additional Labs: Accuchecks 01/27/20 01/27/20 01/26/20 11:28 05:08 20:21 POC Glucose 184 H 124 H 128 H 01/26/20 16:36 POC Glucose 138 H Hospitalist ROS - Medication Medications: Active Medications Generic Name Dose Route Start Last Admin Trade Name Freq PRN Reason Stop Dose Admin Aspirin 325 mg 01/27/20 09:00 01/27/20 08:09 Ecotrin PO 325 mg DAILY [place] Administration Atorvastatin Calcium 20 mg 01/26/20 21:00 01/26/20 21:39 Lipitor PO Not Given HS [place] Donepezil HCl 10 mg 01/27/20 09:00 01/27/20 08:09 Aricept PO 10 mg DAILY [place] Administration Finasteride 5 mg 01/27/20 09:00 01/27/20 08:10 Proscar PO 5 mg DAILY [place] Administration Vancomycin HCl 1 gm/ Device 200 mls @ 200 mls/hr 01/26/20 20:00 01/27/20 09: 31 IVPB 200 mls 0800,2000 [place] Administration Sodium Chloride 1,000 mls @ 75 mls/hr 01/26/20 13:15 01/27/20 04:00 Normal Saline 0.9% IV 1,000 mls .[id number] [place] Administration Ceftriaxone Sodium 2 gm/ 100 mls @ 200 mls/hr 01/27/20 08:30 01/27/20 08:03 Sodium Chloride IVPB 100 mls 0830 [place] Administration Valproic Acid 250 mg/ Sodium 102.5 mls @ 100 mls/hr 01/26/20 21:00 01/27/20 09:30 Chloride IVPB 102.5 mls TID [place] Administration Insulin Human Lispro 0 units 01/26/20 12:10 01/27/20 12:18 Humalog SC 2 unit .MILD SLIDING SCALE PRN Administration Mild Correctional Scale Levothyroxine Sodium 50 mcg 01/27/20 06:00 01/27/20 05:09 Synthroid PO Not Given 0600 [place] Memantine 10 mg 01/26/20 21:00 01/27/20 08:09 Namenda PO 10 mg BID [place] Administration Metoprolol Tartrate 25 mg 01/27/20 09:00 01/27/20 08:09 Lopressor PO 25 mg DAILY [place] Administration Niacin 2,000 mg 01/26/20 21:00 01/26/20 21:40 Niaspan Er PO Not Given HS [place] Pantoprazole Sodium 40 mg 01/27/20 09:00 01/27/20 08:10 Protonix PO 40 mg DAILY [place] Administration Paroxetine HCl 30 mg 01/26/20 21:00 01/26/20 21:40 Paxil PO Not Given HS [place] Quetiapine Fumarate 50 mg 01/26/20 21:00 01/27/20 08:12 Seroquel PO 50 mg BID [place] Administration Tamsulosin HCl 0.4 mg 01/27/20 09:00 01/27/20 08:09 Flomax PO 0.4 mg DAILY [place] Administration - Exam General Appearance: NAD, awake alert ENT - other findings: Mild right blepharitis Heart: RRR, no murmur, no gallops, no rubs, normal peripheral pulses Respiratory: CTAB, no wheezes, no rales, no ronchi, normal chest expansion, no tachypnea, normal percussion Gastrointestinal: soft, non-tender, non-distended, normal bowel sounds, no palpable masses, no hepatomegaly, no splenomegaly, no bruit Extremities: no cyanosis, no clubbing, no edema Skin: normal turgor Neurological: no focal deficits Musculoskeletal: generalized weakness Psychiatric: somnolent Hosp A/P (1) Sepsis Code(s): A41.9 - SEPSIS, UNSPECIFIED ORGANISM Status: Acute (2) E. coli UTI Code(s): N39.0 - URINARY TRACT INFECTION, SITE NOT SPECIFIED; B96.20 - UNSP ESCHERICHIA COLI THE CAUSE OF DISEASES CLASSD [id number] Status: Acute (3) Dementia Code(s): F03.90 - UNSPECIFIED DEMENTIA WITHOUT BEHAVIORAL DISTURBANCE Status: Acute (4) Bipolar disorder Code(s): F31.9 - BIPOLAR DISORDER, UNSPECIFIED Status: Acute (5) Diabetes mellitus Code(s): E11.9 - TYPE 2 DIABETES MELLITUS WITHOUT COMPLICATIONS Status: Chronic (6) Hypertension Code(s): I10 - ESSENTIAL (PRIMARY) HYPERTENSION Status: Acute (7) Hyperlipidemia Code(s): E78.5 - HYPERLIPIDEMIA, UNSPECIFIED Status: Acute - Plan Sepsis: Secondary urinary tract infection. Appears to be growing E. coli. Continue broad-spectrum antibiotics until we have sensitivities known. Urinary tract infection: Appears to be E. coli. Complicated. Patient has history of some urinary retention. Will need to bladder scan and see if he is continuing to have some retention. Continue with broad-spectrum antibiotics and follow-up cultures. Hypertension: Continue with his usual home medication regimen including metoprolol. Diabetes mellitus: Had the metformin held due to significant lactic acidosis. Blood sugars were well controlled. Will not reinitiate that until there is a need proven. Hyperlipidemia: Continue home dose of statin. Bipolar disorder/dementia: Appear to be stable and well compensated. Continue his usual regimen
--- NOTE | 2020-01-27 17:06 | PDOC.EVN ---
Event Note - Event Note Event Note: Attempted to call the patient's next of kin listed. It is for Esther Hudson, a [id number]. Tried twice. Both times the phone call was received and background noise could be heard, but no one spoke.
[2020-01-27 19:28] LABS: Vancomycin, Trough 17.1 ug/mL
[2020-01-27] MEDS: Atorvastatin Calcium 20 MG TAB PO SCH (20:31)
[2020-01-27] MEDS: PARoxetine 20 MG TAB PO SCH (20:32)
[2020-01-28] MEDS: Levothyroxine Sodium 50 MCG TAB PO SCH (05:58)
[2020-01-28] MEDS: Sodium Chloride 0.9% 1,000 ML IV SCH (05:59)
[2020-01-28] MEDS: Vancomycin 1 GM in Premix Bag 1 BAG IVPB SCH (08:42)
[2020-01-28] MEDS: cefTRIAXone\\ROCEPHIN 2 GM in Sodium Chloride 0.9% 100 ML IVPB SCH (08:43)
[2020-01-28] MEDS: Valproate Sodium 250 MG in Sodium Chloride 0.9% 100 ML IVPB SCH (10:52)
[2020-01-28] MEDS: Aspirin 325 mg Enteric Coated Tablet PO SCH (10:55)
[2020-01-28] MEDS: Tamsulosin HCl 0.4 MG CAP PO SCH ×3 (10:55→11:17)
[2020-01-28] MEDS: Metoprolol Tartrate 25 MG TAB PO SCH ×3 (10:55→11:17)
[2020-01-28] MEDS: Donepezil HCl 10 MG TAB PO SCH (10:55)
[2020-01-28] MEDS: Finasteride 5 MG TAB PO SCH (10:56)
[2020-01-28 11:15] VITALS: BP 110/59
[2020-01-28 12:09] VITALS: TEMP 98.7
== END 2020-01-28 12:15 | DRG 872 ==
LOC: ERS 07:18 → T4-B 11:35 → OBSVTOIN 01-27 16:14
PROVIDERS: ADMIT Internal Medicine; ATTEND Internal Medicine
DX: A41.51 Sepsis due to Escherichia coli [E. coli] (principal); N39.0 Urinary tract infection, site not specified; Z20.828 Contact with and (suspected) exposure to other viral communicable diseases; Z66 Do not resuscitate; N40.1 Benign prostatic hyperplasia with lower urinary tract symptoms; R33.8 Other retention of urine; I25.10 Atherosclerotic heart disease of native coronary artery without angina pectoris; E11.9 Type 2 diabetes mellitus without complications; E03.9 Hypothyroidism, unspecified; I10 Essential (primary) hypertension; F03.90 Unspecified dementia, unspecified severity, without behavioral disturbance, psychotic disturbance, mood disturbance, and anxiety; F31.9 Bipolar disorder, unspecified; E78.5 Hyperlipidemia, unspecified; Z88.0 Allergy status to penicillin; Z79.890 Hormone replacement therapy; Z79.82 Long term (current) use of aspirin; Z79.899 Other long term (current) drug therapy; Z79.84 Long term (current) use of oral hypoglycemic drugs
CPT/HCPCS: 36415; 36416; 51798; 71045; 80048; 80053; 80202; 81003; 81015; 83605; 84484; 85025; 87040; 87077; 87086; 87149; 87186; 93005; 96366; 96367; G0378; J0696; J3370; J3490; U0002